=== PATIENT | female | born 1985 | race Caucasian/White ===

== ENCOUNTER 2019-06-18 23:25 | Emergency (ER) | payer OTHER ==
--- NOTE | 2019-06-19 00:28 | EDM.PDOC ---
ED HPI GENERAL MEDICAL PROBLEM - General Chief Complaint: Skin Complaint Stated Complaint: RASH ON BACK Time Seen by Provider: 06/19/19 00:10 Source of Information: Reports: Patient, Old Records, RN History Limitations: Reports: No Limitations - History of Present Illness INITIAL COMMENTS - FREE TEXT/NARRATIVE: 34 yo female recently flew to the [facility]. When she arrived she had a self-limiting febrile illness. Since then she's had some mild joint pains without any redness or swelling. Tonight noted a faint rash on her lower back that reminded her of a bullseye. Denies any knowledge of a tick bite. Is now here in this area for another 6 weeks. Onset: Gradual Onset Date: 06/18/19 Duration: Hour(s): Location: Reports: Back Quality: Reports: Other (no symptoms) Severity: Mild Improves with: Reports: None Worsens with: Reports: Other (? time) Context: Reports: Other (See HPI) Associated Symptoms: Reports: Fever/Chills (now gone), Other (some joint pains) . Denies: Headaches, Nausea/Vomiting Treatments PRODUCT ADVISOR: Reports: Other (see below) (none) Generalized Pain Score (Numeric/FACES): 1 - Related Data Allergies Allergy/AdvReac Type Severity Reaction Status Date / Time [facility] [[facility]] Allergy Swelling Verified 06/18/19 23:57 Penicillins Allergy Swelling Verified 06/18/19 23:57 Home Meds: Home Meds Albuterol Sulfate [Albuterol Sulfate Hfa] 2 puff INH ASDIRECTED PRN 06/18/19 [ History] Fluticasone Propionate [Flonase] 2 dose NASBOTH DAILY 06/18/19 [History] Past Medical History Respiratory History: Reports: Asthma - Infectious Disease History Infectious Disease History: Reports: Chicken Pox - Past Surgical History HEENT Surgical History: Reports: Adenoidectomy, Tonsillectomy Social & Family History - Family History Family Medical History: Noncontributory - Tobacco Use Smoking Status *Q: Never Smoker - Caffeine Use Caffeine Use: Reports: Coffee - Recreational Drug Use Recreational Drug Use: No ED ROS GENERAL - Review of Systems Review Of Systems: See Below Constitutional: Reports: Fever (now resolved) HEENT: Reports: No Symptoms Respiratory: Reports: No Symptoms Cardiovascular: Reports: No Symptoms GI/Abdominal: Reports: No Symptoms : Reports: No Symptoms Musculoskeletal: Reports: No Symptoms Skin: Reports: Rash (on her back) Neurological: Reports: No Symptoms ED EXAM, SKIN/RASH Exam: See Below Exam Limited By: No Limitations General Appearance: Alert, WD/WN, No Apparent Distress Eye Exam: Bilateral Eye: Normal Inspection Ears: Normal External Exam, Normal Canal, Hearing Grossly Normal, Normal TMs Nose: Normal Inspection, No Blood Throat/Mouth: Normal Inspection, Normal Lips, Normal Oropharynx, Normal Voice, No Airway Compromise Head: Atraumatic, Normocephalic Neck: Normal Inspection, Non-Tender. No: Lymphadenopathy (R), Lymphadenopathy ( L) Respiratory/Chest: No Respiratory Distress, Lungs Clear, Normal Breath Sounds Cardiovascular: Regular Rate, Rhythm, No Edema GI/Abdominal: Normal Bowel Sounds, Soft, Non-Tender, No Distention Back Exam: Normal Inspection. No: CVA Tenderness (R), CVA Tenderness (L) Extremities: Normal Inspection, Normal Range of Motion, Non-Tender, No Pedal Edema Neurological: Alert, Oriented, CN II-XII Intact, Normal Cognition, No Motor/ Sensory Deficits Psychiatric: Normal Affect, Normal Mood Skin: Warm, Dry, Intact, Normal Color, Rash (very faint rash to her low L back that does appear like a bullseye. Measures about 4-5 inches across. ). No: No Rash Location, Skin: Back Characteristics: Erythematous (slightly) Associated features: No: Warmth, Tenderness, Swelling, Induration, Scaling, Lymphangitis Course - Vital Signs Last Recorded V/S: Last Vital Signs Temp 35.8 C 06/19/19 00:00 Pulse 76 06/19/19 00:00 Resp 16 06/19/19 00:00 BP 130/73 06/19/19 00:00 Pulse Ox 100 06/19/19 00:00 - Orders/Labs/Meds Orders: Active Orders 24 hr Category Date Time Status LYME, TOTAL AB TEST/REFLEX Routine Lab 06/19/19 00:22 Ordered Labs: Laboratory Tests 06/19/19 Range/Units 00:21 WBC 5.8 (4.5-11.0) K/uL RBC 4.10 (3.30-5.50) M/uL Hgb 12.3 (12.0-15.0) g/dL Hct 38.1 (36.0-48.0) % MCV 93 (80-98) fL MCH 30 (27-31) pg MCHC 32 (32-36) % Plt Count 287 (150-400) K/uL Neut % (Auto) 58 (36-66) % Lymph % (Auto) 28 (24-44) % [place] % (Auto) 12 H (2-6) % Eos % (Auto) 2 (2-4) % Baso % (Auto) 1 (0-1) % Departure - Departure Time of Disposition: 00:54 Disposition: Home, Self-Care 01 Condition: Good Clinical Impression: Rash - Discharge Information *PRESCRIPTION DRUG MONITORING PROGRAM REVIEWED*: No *COPY OF PRESCRIPTION DRUG MONITORING REPORT IN PATIENT DAVID: No Instructions: Rash Referrals: PCP,None [Primary Care Provider] - Forms: ED Department Discharge Additional Instructions: Check back next week for your test results from today. Take acetaminophen or ibuprofen in the interim for pain relief. - My Orders Last 24 Hours: My Active Orders 06/19/19 00:22 LYME, TOTAL AB TEST/REFLEX Routine - Assessment/Plan Last 24 Hours: My Active Orders 06/19/19 00:22 LYME, TOTAL AB TEST/REFLEX Routine
[2019-06-29 11:09] LABS: IGG P18 AB. Absent (.); IGG P23 AB. Present (.); IGG P28 AB. Absent (.); IGG P30 AB. Absent (.); IGG P39 AB. Absent (.); IGG P41 AB. Present (.); IGG P45 AB. Absent (.); IGG P58 AB. Absent (.); IGG P66 AB. Absent (.); IGG P93 AB. Absent (.); IGM P23 AB. Present (.); IGM P39 AB. Present (.); IGM P41 AB. Present (.); LYME IGG WB INTERP. Negative (.); LYME IGG/IGM AB 2.97 ISR (0.00-0.90); LYME IGM WB INTERP. Positive (.)
== END 2019-06-19 01:05 | disposition home or self-care (01) ==
LOC: JP.ED 23:25
DX: R21 Rash and other nonspecific skin eruption (principal); J45.909 Unspecified asthma, uncomplicated; Z88.0 Allergy status to penicillin; Z88.8 Allergy status to other drugs, medicaments and biological substances; Z79.899 Other long term (current) drug therapy
CPT/HCPCS: 36415; 85025; 86617-59; 86618; 99283

== ENCOUNTER 2020-06-18 09:35 | Emergency (ER) | payer OTHER ==
--- NOTE | 2020-06-18 10:13 | EDM.PDOC ---
ED HPI GENERAL MEDICAL PROBLEM - General Chief Complaint: General Stated Complaint: GUM IS SORE BLISTER INSIDE MOUTH Time Seen by Provider: 06/18/20 10:00 Source of Information: Reports: Patient History Limitations: Reports: No Limitations - History of Present Illness INITIAL COMMENTS - FREE TEXT/NARRATIVE: 35 yo female with a couple day hx of some swelling, tenderness to the lingual side of her right maxillary molars. No fever. Some tenderness of the cervical lymph nodes on the right. Allergy to PCN. Visiting from [place]. Onset: Gradual Duration: Day(s):, Getting Worse Location: Reports: Head (mouth) Quality: Reports: Dull Severity: Mild Improves with: Reports: None Worsens with: Reports: Other (time) Context: Reports: Other (See HPI) Associated Symptoms: Reports: No Other Symptoms Treatments OB NURSE: Reports: Other (see below) (none) - Related Data Allergies Allergy/AdvReac Type Severity Reaction Status Date / Time [facility] Allergy Swelling Verified 06/18/20 09:52 Penicillins Allergy Swelling Verified 06/18/20 09:52 Home Meds: Home Meds Albuterol Sulfate [Albuterol Sulfate Hfa] 2 puff INH ASDIRECTED PRN 06/18/19 [History] Fluticasone Propionate [Flonase] 2 dose NASBOTH DAILY 06/18/19 [History] Cetirizine HCl [Zyrtec] 1 tab PO ASDIRECTED 06/18/20 [History] Clindamycin HCl 300 mg PO Q8H #20 capsule 06/18/20 [Rx] Past Medical History Respiratory History: Reports: Asthma - Infectious Disease History Infectious Disease History: Reports: Chicken Pox - Past Surgical History Head Surgeries/Procedures: Reports: None HEENT Surgical History: Reports: Adenoidectomy, Tonsillectomy Respiratory Surgical History: Reports: None Social & Family History - Family History Family Medical History: Noncontributory - Tobacco Use Smoking Status *Q: Never Smoker - Caffeine Use Caffeine Use: Reports: Coffee - Alcohol Use Days Per Week of Alcohol Use: 1 Number of Drinks Per Day: 1 Total Drinks Per Week: 1 - Recreational Drug Use Recreational Drug Use: No ED ROS GENERAL - Review of Systems Review Of Systems: See Below Constitutional: Reports: No Symptoms HEENT: Reports: Other (mouth tenderness and local swelling) Respiratory: Reports: No Symptoms Cardiovascular: Reports: No Symptoms Skin: Reports: No Symptoms Neurological: Reports: No Symptoms ED EXAM, GENERAL - Physical Exam Exam: See Below Exam Limited By: No Limitations General Appearance: Alert, WD/WN, No Apparent Distress Eye Exam: Bilateral Eye: Normal Inspection Ears: Normal External Exam, Normal Canal, Hearing Grossly Normal, Normal TMs Ear Exam: Bilateral Ear: Auricle Normal, Canal Normal Nose: Normal Inspection, No Blood Throat/Mouth: Normal Lips, Normal Teeth, Normal Oropharynx, Normal Voice, No Airway Compromise, Other (swelling of the oral tissues on the R maxilla medial to her molars. ) Head: Atraumatic, Normocephalic Neck: Normal Inspection, Supple, Non-Tender, Full Range of Motion, Lymphadenopathy (R). No: Limited Range of Motion, Lymphadenopathy (L) Neurological: Alert, Oriented, CN II-XII Intact, Normal Cognition, No Motor/Sensory Deficits Psychiatric: Normal Affect, Normal Mood Skin Exam: Warm, Dry, Intact, Normal Color, No Rash Course - Vital Signs Last Recorded V/S: Last Vital Signs Temp 36.6 C 06/18/20 09:57 Pulse 64 06/18/20 09:57 Resp 17 06/18/20 09:57 BP 132/70 06/18/20 09:57 Pulse Ox 98 06/18/20 09:57 Departure - Departure Time of Disposition: 10:14 Disposition: Home, Self-Care 01 Condition: Good Clinical Impression: Oral infection - Discharge Information *PRESCRIPTION DRUG MONITORING PROGRAM REVIEWED*: No *COPY OF PRESCRIPTION DRUG MONITORING REPORT IN PATIENT DAIVD: No Prescriptions: Clindamycin HCl 300 mg PO Q8H #20 capsule Referrals: PCP,None [Primary Care Provider] - Additional Instructions: Practice good oral hygiene. Use clindamycin as directed. See your dentist if this issue does not fully resolve in a week. Sepsis Event Note (ED) - Evaluation Sepsis Screening Result: No Definite Risk - Focused Exam Vital Signs: Vital Signs Temp Pulse Resp BP Pulse Ox 06/18/20 09:57 36.6 C 64 17 132/70 98 06/18/20 09:49 36.6 C 64 17 132/70 98
== END 2020-06-18 10:21 | disposition home or self-care (01) ==
LOC: JP.ED 09:35
DX: K13.79 Other lesions of oral mucosa (principal); J45.909 Unspecified asthma, uncomplicated; Z88.0 Allergy status to penicillin; Z88.1 Allergy status to other antibiotic agents; Z90.49 Acquired absence of other specified parts of digestive tract; Z90.89 Acquired absence of other organs; Z79.899 Other long term (current) drug therapy
CPT/HCPCS: 99283